=== PATIENT | female | born 2000 | race Caucasian/White ===

== ENCOUNTER 2020-10-20 21:09 | Emergency (ER) | payer BC ==
[~2020-10-20] VITALS: Ht 162.6 cm; Wt 76.4 kg
[2020-10-20 21:59] LABS: ALANINE AMINOTRANSFERASE 26 U/L (12-78); ALBUMIN 4.4 G/DL (3.4-5.0); ALBUMIN/GLOBULIN RATIO 1.5 (1.1-1.5); ALKALINE PHOSPHATASE 80 IU/L (20-180); ANION GAP 12 (8-16); ASPARTATE AMINO TRANSFERASE 19 U/L (10-37); BILIRUBIN,TOTAL 0.2 MG/DL (0.1-1.0); BLOOD UREA NITROGEN 13 MG/DL (7-18); BUN/CREATININE RATIO 11.8 (6.6-38.0); CHLORIDE 107 MMOL/L (99-107); GLUCOSE 83 MG/DL (70-104); LIPASE 88 U/L (73-393); POTASSIUM 4.1 MMOL/L (3.5-5.1); SODIUM 144 MMOL/L (135-145); TOTAL CARBON DIOXIDE 25.4 MMOL/L (24-32); TOTAL PROTEIN 7.4 G/DL (6.4-8.2); eGFR 64 ML/MIN
[2020-10-20 22:01] LABS: BASOPHILS % (AUTO) 0.7 % (0-1); EOSINOPHILS # (AUTO) 0.2 X10'3 (0-0.9); EOSINOPHILS % (AUTO) 2.8 % (0-6); HEMATOCRIT 42.1 % (35.0-45.0); HEMOGLOBIN 14.5 g/dl (12.0-16.0); LYMPHOCYTES # (AUTO) 2.1 X10'3 (1.1-4.8); LYMPHOCYTES % (AUTO) 37.5 % (21-51); MEAN CORPUSCULAR HEMOGLOBIN 29.9 PG (27.0-31.0); MEAN CORPUSCULAR HGB CONC 34.4 g/dL (33.0-36.5); MEAN PLATELET VOLUME 10.1 FL (7.4-10.4); MONOCYTES # (AUTO) 0.4 X10'3 (0-0.9); NEUTROPHILS # (AUTO) 2.9 X10'3 (1.8-7.7); PLATELET COUNT 235 X10'3 (140-440); RED BLOOD COUNT 4.84 X10'6 (4.20-5.60); RED CELL DISTRIBUTION WIDTH 13.4 % (11.5-14.5); WHITE BLOOD COUNT 5.6 X10'3 (4.5-11.0)
[2020-10-20 22:04] LABS: URINE HCG NEGATIVE (NEG)
[2020-10-20 22:10] LABS: CLARITY,URINE CLEAR (Clear); COLOR,URINE YELLOW (Yellow); GLUCOSE, URINE NEGATIVE (Neg); KETONES,URINE NEGATIVE (Neg); LEUKOCYTE ESTERASE ,URINE NEGATIVE (Neg); NITRITES, URINE NEGATIVE (Neg); OCCULT BLOOD,URINE NEGATIVE (Neg); PROTEIN,URINE NEGATIVE (Neg); UROBILINOGEN,URINE 0.2 E.U/dL (0.2-1.0)
[2020-10-20 22:13] LABS: UA COLLECTION TYPE CLN CATCH MIDSTREAM
[2020-10-21] MEDS ORDERED: HYDROcodone/acetaminophen 5mg/325mg tablet PO ONE (02:40)
[2020-10-21] MEDS ORDERED: ondansetron 4mg rapidly disintigrating tab PO ONE (02:40)
[2020-10-21] MEDS ORDERED: ibuprofen tablet 400 MG TABLET PO ONE (02:40)
[2020-10-21] MEDS ORDERED: acetaminophen 325mg tablet PO ONE (02:40)
[2020-10-21] MEDS ORDERED: HYDR-3965 PO (02:43)
[2020-10-21] MEDS ORDERED: CYCL-1 PO (02:43)
[2020-10-21 02:53] VITALS: BP 127/71
== END 2020-10-21 02:54 | disposition home or self-care (01) ==
LOC: ER 21:10
DX: R10.30 Lower abdominal pain, unspecified (principal); M54.5 Low back pain; Z87.442 Personal history of urinary calculi
CPT/HCPCS: 36415; 80053; 81003; 81025; 83690; 85025; 99284